=== PATIENT | male | born 1955 | race Caucasian/White ===

== ENCOUNTER 2023-01-20 01:10 | Emergency (ER) | payer SELFPAY ==
[2023-01-20] MEDS ORDERED: Lidocaine 1% w/Epinephrine 1:100K 20 ML VIAL ONE (01:47)
[2023-01-20] MEDS ORDERED: hydrALAZINE 20 MG/ML VIAL ONE (01:50)
[2023-01-20] MEDS ORDERED: Ondansetron PF 4 MG/2 ML Vial ONE ×2 (01:50→01:51)
[2023-01-20] MEDS ORDERED: cloNIDine 0.1 MG TAB ONE (01:59)
[2023-01-20 02:11] LABS: #Basophils 0.1 thou/uL (0.0-0.2); #Eosinphils 0.4 thou/uL (0.0-0.7); #Monocytes 0.9 thou/uL (0.11-0.59); #Neutrophils 6.8 thou/uL (1.40-6.50); %Basophils 0.9 % (0.0-1.0); %Eosinophils 4.2 % (0.0-10.0); %Lymphocytes 18.2 % (21.0-51.0); %Monocytes 9.1 % (0.0-10.0); %Neutrophils 67.2 % (42.0-75.0); Hemoglobin 13.2 g/dL (14.0-18.0); Mean Corpuscular HGB CONC 34.2 g/dL (32.0-36.0); Mean Corpuscular Hemoglobin 32.5 pg (27.0-31.0); Mean Corpuscular Volume 95.1 fl (78.0-98.0); Mean Platelet Volume 11.3 fL (7.4-10.4); Platelet Count 222 10x3/uL (130-400); RBC Distribution Width 12.8 % (11.5-14.5); Red Blood Cell (RBC) Count 4.06 mill/uL (4.70-6.10); White Blood Cell (WBC) Count 10.1 10x3/uL (4.8-10.8)
[2023-01-20 02:32] LABS: ALT (SGPT) 13 U/L (8-55); AST (SGOT) 16 U/L (5-34); Albumin 4.1 g/dL (3.4-4.8); Alkaline Phosphatase 57 U/L (40-110); Anion Gap 12 mmol/L (10-20); BUN (Urea Nitrogen) 15 mg/dL (8.4-25.7); Bilirubin, Total 0.4 mg/dL (0.2-1.2); CK (CPK) 79 U/L (30-200); Calc. Creatinine Clearance 0 mL/min (70-130); Calcium 9.7 mg/dL (7.8-10.44); Carbon Dioxide 25 mmol/L (23-31); Chloride 108 mmol/L (98-107); Estimated GFR 70; Globulin 3.4 g/dL (2.4-3.5); Glucose 127 mg/dL (80-115); Lipase 32 U/L (8-78); Potassium 3.8 mmol/L (3.5-5.1); Protein, Total 7.5 g/dL (5.8-8.1); Sodium 141 mmol/L (136-145)
== END 2023-01-20 02:51 | disposition home or self-care (01) ==
LOC: ERS 01:10
DX: R04.0 Epistaxis (principal); I10 Essential (primary) hypertension
CPT/HCPCS: 30903; 36415; 71045; 80053; 82550; 83690; 83880; 84484; 85025; 93005; 94760; J0360; J2405